=== PATIENT | male | born 1990 | race Caucasian/White ===

== ENCOUNTER 2020-07-03 16:52 | Emergency (ER) | payer OTHER, MEDICAID ==
[~2020-07-03] VITALS: Ht 177.8 cm; Wt 79.4 kg
[2020-07-03] MEDS ORDERED: XANAX 0.25 MG0.25 MG PO (17:09)
[2020-07-03] MEDS ORDERED: ADDERALL 10 MG10 MG PO (17:09)
[2020-07-03] MEDS ORDERED: PHENERGAN 25 MG25 M1 PO (19:00)
[2020-07-03 19:20] VITALS: BP 109/77
== END 2020-07-03 19:21 | disposition home or self-care (01) ==
LOC: M.ERS 16:52
DX: R11.0 Nausea (principal); Z20.828 Contact with and (suspected) exposure to other viral communicable diseases; F17.210 Nicotine dependence, cigarettes, uncomplicated; Z88.6 Allergy status to analgesic agent

== ENCOUNTER 2020-08-16 14:42 | Emergency (ER) | payer MEDICAID ==
[~2020-08-16] VITALS: Ht 172.7 cm; Wt 49.0 kg
[~2020-08-16 14:42] MED LIST: ADDERALL 10 MG10 MG PO; PHENERGAN 25 MG25 M1 PO; XANAX 0.25 MG0.25 MG PO
[2020-08-16] MEDS ORDERED: XANAX 0.5 MG0.5 M1 PO (15:04)
[2020-08-16] MEDS ORDERED: TRAMADOL 50 MG50 MG PO (15:05)
[2020-08-16 16:08] LABS: ABSOLUTE BASOPHILS 0.1 thou/uL (0.0-0.2); ABSOLUTE EOSINOPHILS 0.1 thou/uL (0.0-0.7); ABSOLUTE LYMPHOCYTES 2.1 thou/uL (0.8-5.3); ABSOLUTE MONOCYTES 0.7 thou/uL (0.0-1.2); ABSOLUTE NEUTROPHILS 7.9 thou/uL (1.6-8.1); BASOPHILS 0.9 %; EOSINOPHILS 0.7 %; HEMATOCRIT 48.8 % (42.0-52.0); HEMOGLOBIN 16.9 gm/dL (14.0-18.0); LYMPHOCYTES 19.2 %; MCH 34.5 pg (26.0-34.0); MCHC 34.7 g/dL (28.0-37.0); MCV 99.6 fL (80.0-100.0); MONOCYTES 6.2 %; MPV 8.6 fl. (7.2-11.1); NUCLEATED RBCS 0 /100WBC; PLATELET COUNT* 156 thou/uL (150-400); RDW-CV 13.1 % (10.5-14.5); WBC 10.8 thou/uL (4.0-11.0)
[2020-08-16 16:16] LABS: CALCIUM 9.4 mg/dL (8.5-10.1); POTASSIUM 4.9 mmol/L (3.5-5.1)
[2020-08-16 16:20] LABS: ALBUMIN 4.2 g/dL (3.4-5.0); TOTAL BILIRUBIN 0.9 mg/dL (<0.1-1.0); TOTAL PROTEIN 7.7 g/dL (6.4-8.2)
[2020-08-16] MEDS ORDERED: ZPAK PO (16:40)
[2020-08-16] MEDS ORDERED: PROMETHAZINE-D473 M1 PO (16:40)
[2020-08-16] MEDS ORDERED: PROAIR HFA8.5 GM INH (17:15)
[2020-08-16] MEDS ORDERED: TESSALON PERLE100 M1 PO (17:15)
[2020-08-16 17:18] LABS: ESR (SEDRATE) 1 mm/hr (0-15)
[2020-08-16 17:25] VITALS: BP 107/83
== END 2020-08-16 17:25 | disposition home or self-care (01) ==
LOC: M.ERS 14:42
PROVIDERS: Physician Assistant
DX: J22 Unspecified acute lower respiratory infection (principal); Z79.899 Other long term (current) drug therapy; Z88.8 Allergy status to other drugs, medicaments and biological substances; Z20.828 Contact with and (suspected) exposure to other viral communicable diseases